=== PATIENT | female | born 1960 | race Caucasian/White ===

== ENCOUNTER 2017-10-07 07:51 | Outpatient (CLI) | payer OTHER ==
[2017-10-07 13:12] LABS: BASOPHILS % (AUTO) 0.6 %; EOSINOPHILS # (AUTO) 0.3 10^3/uL (0.0-0.7); EOSINOPHILS % (AUTO) 6.2 %; HGB - HEMOGLOBIN 13.2 g/dL (12.0-16.0); LYMPHOCYTES # (AUTO) 1.3 10^3/uL (1.5-3.5); LYMPHOCYTES % (AUTO) 33.4 %; MEAN CORPUSCULAR HEMOGLOBIN 25.6 pg (27.0-31.0); MEAN CORPUSCULAR HGB CONC 32.6 g/dL (32.0-36.0); MEAN CORPUSCULAR VOLUME 78.5 fL (81.0-99.0); MONOCYTES # (AUTO) 0.4 10^3/uL (0.0-1.0); MONOCYTES % (AUTO) 11.1 %; NEUTROPHILS % (AUTO) 48.7 %; PLT - PLATELET COUNT 216 10^3/uL (130-450); RED BLOOD COUNT 5.17 10^6/uL (4.20-5.40); RED CELL DISTRIBUTION WIDTH 14.6 % (12.0-15.0)
[2017-10-07 13:20] LABS: ALBUMIN 4.4 g/dL (3.2-5.5); ALBUMIN/GLOBULIN RATIO 1.5 (1.0-2.2); ALKALINE PHOSPHATASE 65 IU/L (42-121); ALT ALANINE AMINOTRANSFERASE 19 IU/L (10-60); AST ASPARTATE AMINOTRANSFERASE 21 IU/L (10-42); BILIRUBIN,TOTAL 0.6 mg/dL (0.2-1.0); BUN - BLOOD UREA NITROGEN 15 mg/dL (6-20); CARBON DIOXIDE - CO2 26 mmol/L (21-32); CHLORIDE 106 mmol/L (101-111); CHOL/HDL RATIO 6.1 (<4.4); CHOLESTEROL 231 mg/dL; CREATININE 0.8 mg/dL (0.4-1.0); GFR - MDRD 74 (>89); GLUCOSE 118 mg/dL (70-100); HDL CHOLESTEROL 38 mg/dL; LDL CHOLESTEROL,CALCULATED 161 mg/dL; LDL/HDL RATIO 4.2 (<4.4); SODIUM 138 mmol/L (135-145); TOTAL PROTEIN 7.3 g/dL (6.7-8.2); VLDL CHOLESTEROL 32 mg/dL
[2017-10-07 13:29] LABS: THYROID STIMULATING HORMONE 1.27 uIU/mL (0.34-5.60)
== END 2017-10-07 07:52 | disposition home or self-care (01) ==
LOC: LAB.WCP 07:51
PROVIDERS: ATTEND Family Medicine
DX: G43.909 Migraine, unspecified, not intractable, without status migrainosus (principal); E03.9 Hypothyroidism, unspecified; R73.01 Impaired fasting glucose; E78.5 Hyperlipidemia, unspecified
CPT/HCPCS: 36415; 80053; 80061; 83721; 83970; 84443; 85025

== ENCOUNTER 2017-10-24 20:25 | Outpatient (CLI) | payer OTHER | END 2017-10-24 20:26 | disposition home or self-care (01) | LOC: LAB.WCP 20:25 | PROVIDERS: ATTEND Family Medicine | DX: B34.9 Viral infection, unspecified (principal) | CPT/HCPCS: 87275; 87276 ==

== ENCOUNTER 2018-06-05 12:20 | Outpatient (CLI) | payer OTHER ==
[2018-06-05 13:10] LABS: BASOPHILS % (AUTO) 0.4 %; EOSINOPHILS # (AUTO) 0.1 10^3/uL (0.0-0.7); EOSINOPHILS % (AUTO) 2.8 %; LYMPHOCYTES # (AUTO) 1.3 10^3/uL (1.5-3.5); LYMPHOCYTES % (AUTO) 29.7 %; MEAN CORPUSCULAR HEMOGLOBIN 26.1 pg (27.0-31.0); MEAN CORPUSCULAR HGB CONC 33.1 g/dL (32.0-36.0); MEAN PLATELET VOLUME 7.3 fL (7.9-10.8); MONOCYTES # (AUTO) 0.5 10^3/uL (0.0-1.0); MONOCYTES % (AUTO) 10.4 %; NEUTROPHILS # (AUTO) 2.6 10^3/uL (1.5-6.6); NEUTROPHILS % (AUTO) 56.7 %; PLT - PLATELET COUNT 227 10^3/uL (130-450); RED BLOOD COUNT 4.99 10^6/uL (4.20-5.40); RED CELL DISTRIBUTION WIDTH 15.4 % (12.0-15.0); WHITE BLOOD COUNT 4.5 x10^3/uL (4.8-10.8)
[2018-06-05 13:13] LABS: ALBUMIN 4.3 g/dL (3.2-5.5); ALBUMIN/GLOBULIN RATIO 1.6 (1.0-2.2); ALKALINE PHOSPHATASE 64 IU/L (42-121); ALT ALANINE AMINOTRANSFERASE 22 IU/L (10-60); AST ASPARTATE AMINOTRANSFERASE 22 IU/L (10-42); BILIRUBIN,TOTAL 0.5 mg/dL (0.2-1.0); BUN - BLOOD UREA NITROGEN 15 mg/dL (6-20); CALCIUM 9.5 mg/dL (8.5-10.3); CARBON DIOXIDE - CO2 24 mmol/L (21-32); CHLORIDE 102 mmol/L (101-111); CREATININE 1.1 mg/dL (0.4-1.0); GFR - MDRD 51 (>89); GLUCOSE 104 mg/dL (70-100); SODIUM 137 mmol/L (135-145)
== END 2018-06-05 12:21 | disposition home or self-care (01) ==
LOC: EEVIPCON 12:20 → LAB 12:20
PROVIDERS: ATTEND Family Medicine
DX: G47.33 Obstructive sleep apnea (adult) (pediatric) (principal); R32 Unspecified urinary incontinence; J45.909 Unspecified asthma, uncomplicated; G43.909 Migraine, unspecified, not intractable, without status migrainosus
CPT/HCPCS: 36415; 80053; 84443; 85025

== ENCOUNTER 2018-07-08 14:34 | Outpatient (CLI) | payer OTHER | END 2018-07-08 14:35 | disposition home or self-care (01) | LOC: SC 14:34 | PROVIDERS: ATTEND Internal Medicine Pulmonary Disease | DX: G47.33 Obstructive sleep apnea (adult) (pediatric) (principal); E66.9 Obesity, unspecified; Z68.37 Body mass index [BMI] 37.0-37.9, adult | CPT/HCPCS: 99203; 99212 ==

== ENCOUNTER 2018-07-17 14:18 | Outpatient (CLI) | payer OTHER ==
[2018-07-17 14:48] LABS: CALCIUM 9.3 mg/dL (8.5-10.3)
== END 2018-07-17 14:19 | disposition home or self-care (01) ==
LOC: LAB 14:18
PROVIDERS: ATTEND Family Medicine
DX: G43.909 Migraine, unspecified, not intractable, without status migrainosus (principal)
CPT/HCPCS: 36415; 80048

== ENCOUNTER 2018-07-19 19:30 | Outpatient (CLI) | payer OTHER | END 2018-07-19 23:59 | disposition home or self-care (01) | LOC: SC 19:30 | PROVIDERS: ATTEND Internal Medicine Pulmonary Disease | DX: G47.33 Obstructive sleep apnea (adult) (pediatric) (principal) | CPT/HCPCS: 95806 ==

== ENCOUNTER 2018-08-18 15:38 | Outpatient (CLI) | payer OTHER | END 2018-08-18 15:39 | disposition home or self-care (01) | LOC: SC 15:38 | PROVIDERS: ATTEND Nurse Practitioner Family | DX: G47.33 Obstructive sleep apnea (adult) (pediatric) (principal) | CPT/HCPCS: 99212; 99214 ==

== ENCOUNTER 2018-11-26 08:44 | Outpatient (CLI) | payer BC, OTHER | END 2018-11-26 08:45 | disposition home or self-care (01) | LOC: SC 08:44 | PROVIDERS: ATTEND Nurse Practitioner Family | DX: G47.33 Obstructive sleep apnea (adult) (pediatric) (principal) | CPT/HCPCS: 99212; 99214 ==

== ENCOUNTER 2018-12-20 19:25 | Emergency (ER) | payer BC ==
--- NOTE | 2018-12-20 20:02 | ED Physician Documentation ---
PD HPI NVD - Stated complaint Stated Complaint: ABD PAIN/D - Chief complaint Chief Complaint: Abd Pain - History obtained from History obtained from: Patient - History of Present Illness Timing - onset: How many days ago (1 1/2 days of Initially with some intermittent crampy lower abdominal pain and followed by watery diarrhea. This was fairly consistent for about 12 hours and then taper down. She still has diarrhea the last day however when she eats or drinks any food or fluids. She has decreased oral intake because of that. She is not feeling dizzy or lightheaded however. She has not noticed any blood in her stool. The abdominal cramping is not focal nor consistent.) Timing - duration: Days (1 1/2 - 2) Timing - details: Abrupt onset, Still present, Waxing and waning Associated symptoms: Abdominal pain (cramping mid to low abd), Loss of appetite. No: Fever, Melena, Dysuria Contributing factors: No: Sick contact, Bad food, Travel, Recent antibiotics Worsened by: Eating Similar symptoms before: Has not had sx before Recently seen: Not recently seen Review of Systems Constitutional: reports: Myalgias. denies: Fever, Chills Nose: denies: Rhinorrhea / runny nose, Congestion Throat: denies: Sore throat Respiratory: denies: Cough GI: reports: Abdominal Pain, Nausea, Diarrhea. denies: Abdominal Swelling, Vomiting, Constipation, Bloody / black stool : denies: Dysuria, Frequency Neurologic: denies: Generalized weakness, Near syncope PD PAST MEDICAL HISTORY - Past Medical History Cardiovascular: None GI: Other (gluten intolerance) - Present Medications Home Medications: Ambulatory Orders Medication Instructions Recorded Confirmed Dicyclomine [Bentyl] 10 mg PO QID PRN #10 capsule 12/20/18 Diphenoxylate/Atropine [Lomotil] 1 each PO QID PRN #12 tablet 12/20/18 Ondansetron Odt [Zofran] 4 mg TL Q6H PRN #10 tablet 12/20/18 - Allergies Allergies/Adverse Reactions: Allergies Allergy/AdvReac Type Severity Reaction Status Date / Time gluten Allergy Cramps Verified 12/20/18 19:30 montelukast [From Singulair] Allergy Rash Verified 12/20/18 19:30 Penicillins Allergy Hives Verified 12/20/18 19:30 PD ED PE NORMAL - Vitals Vital signs reviewed: Yes - General General: Alert and oriented X 3, No acute distress, Well developed/nourished - Neck Neck: Supple, no meningeal sign, No adenopathy - Cardiac Cardiac: RRR, No murmur - Respiratory Respiratory: Clear bilaterally - Abdomen Abdomen: Normal bowel sounds, Soft, Non tender (minimal tenderness without guarding in mid abdomen.), Non distended, No organomegaly - Back Back: No CVA TTP - Derm Derm: Normal color Results - Vitals Vitals: Vital Signs - 24 hr 12/20/18 12/20/18 12/20/18 19:28 19:45 21:12 Temperature 36 C L Heart Rate 75 64 Respiratory 18 16 16 Rate Blood Pressure 150/93 H 131/86 H O2 Saturation 98 97 Oxygen O2 Source Room air PD MEDICAL DECISION MAKING - ED course Complexity details: considered differential (She is having mid to lower abdominal cramping diffusely associated with watery frequent diarrhea for just 1-1/2 days. She has nausea without any vomiting. There is no focal tenderness to palpation at this point. There is no history of diverticulitis. She is status post cholecystectomy and appendectomy. We talked about it and had shared decision to treat it as likely viral gastroenteritis versus food poisoning and treat with symptoms for another day before undergoing any stool cultures or studies. There is no focal tenderness and so did not see the need for imaging at this point. If she has persistent symptoms or more localized pain then further studies may be indicated. She did not feel dehydrated enough for IV fl uids.), d/w patient Departure - Departure Disposition: 01 Home, Self Care Clinical Impression: Abdominal cramping Diarrhea Qualifiers: Diarrhea type: presumed infectious Qualified Code(s): R19.7 - Diarrhea, unspecified Condition: Stable Record reviewed to determine appropriate education?: Yes Instructions: ED Diarrhea Viral Follow-Up: Luis Antonio Hood MD [Primary Care Provider] - Prescriptions: Dicyclomine [Bentyl] 10 mg PO QID PRN #10 capsule PRN Reason: Cramp Diphenoxylate/Atropine [Lomotil] 1 each PO QID PRN #12 tablet PRN Reason: Diarrhea Ondansetron Odt [Zofran] 4 mg TL Q6H PRN #10 tablet PRN Reason: Nausea / Vomiting Comments: This sounds likely to be brief food poisoning or viral enteritis. Use symptom medicine of Zofran for nausea and Imodium or Lomotil for diarrhea. You can use dicyclomine for cramps. Tonight use the hydrocodone if needed for pains or cramps. Recheck if this has not improved within a day or so more. The may be some mild symptoms for a couple of days. If you have persistent diarrhea beyond that, obtain a stool sample of it and bring it to your primary care for culture and C. difficile testing. Return if worsening symptoms such as bloody stool, focal pain, worse pain, fevers or other concerns. Discharge Date/Time: 12/20/18 21:12
[2018-12-20] MEDS ORDERED: ONDANSETRON ODT 4 MG Prepack 2 TL PRN (20:32)
[2018-12-20] MEDS ORDERED: ONDANSETRON ODT 4 MG TABLET TL STA (20:32)
[2018-12-20] MEDS ORDERED: DICYCLOMINE 10 MG CAPSULE PO STA (20:32)
[2018-12-20] MEDS ORDERED: HYDROcod/ACET 5/325 Prepack 4 PO STA (20:32)
[2018-12-20] MEDS ORDERED: DIPHENOX/ATROPINE 2.5/0.025 MG TABLET PO STA (20:32)
[2018-12-20 21:13] VITALS: BP 131/86
== END 2018-12-20 21:12 | disposition home or self-care (01) ==
LOC: ED 19:25
DX: R10.9 Unspecified abdominal pain (principal); R19.7 Diarrhea, unspecified; R11.0 Nausea
CPT/HCPCS: 99283; A9270; Q0162

== ENCOUNTER 2018-12-26 18:21 | Outpatient (CLI) | payer BC ==
[2018-12-26 18:40] LABS: BASOPHILS % (AUTO) 0.6 %; EOSINOPHILS # (AUTO) 0.2 10^3/uL (0.0-0.7); EOSINOPHILS % (AUTO) 3.4 %; HGB - HEMOGLOBIN 13.4 g/dL (12.0-16.0); LYMPHOCYTES # (AUTO) 1.9 10^3/uL (1.5-3.5); LYMPHOCYTES % (AUTO) 36.9 %; MEAN CORPUSCULAR HGB CONC 31.9 g/dL (32.0-36.0); MEAN CORPUSCULAR VOLUME 81.4 fL (81.0-99.0); MONOCYTES # (AUTO) 0.5 10^3/uL (0.0-1.0); MONOCYTES % (AUTO) 8.8 %; NEUTROPHILS # (AUTO) 2.6 10^3/uL (1.5-6.6); NEUTROPHILS % (AUTO) 50.3 %; PLT - PLATELET COUNT 224 10^3/uL (130-450); RED BLOOD COUNT 5.17 10^6/uL (4.20-5.40); RED CELL DISTRIBUTION WIDTH 14.9 % (12.0-15.0); WHITE BLOOD COUNT 5.2 x10^3/uL (4.8-10.8)
[2018-12-26 19:03] LABS: CALCIUM 9.3 mg/dL (8.5-10.3); CREATININE 0.9 mg/dL (0.4-1.0)
== END 2018-12-26 18:22 | disposition home or self-care (01) ==
LOC: LAB 18:21
PROVIDERS: ATTEND Family Medicine
DX: R19.7 Diarrhea, unspecified (principal); E03.9 Hypothyroidism, unspecified; R73.01 Impaired fasting glucose; G43.909 Migraine, unspecified, not intractable, without status migrainosus
CPT/HCPCS: 36415; 80048; 80201; 81599; 84443; 85025